=== PATIENT | female | born 1990 | race Caucasian/White ===

== ENCOUNTER 2017-06-19 18:13 | Emergency (ER) | payer OTHER, SELFPAY | END 2017-06-19 19:23 | disposition home or self-care (01) | LOC: SCSER 18:13 | DX: K14.1 Geographic tongue (principal); F41.9 Anxiety disorder, unspecified; F17.290 Nicotine dependence, other tobacco product, uncomplicated | CPT/HCPCS: 99283 ==

== ENCOUNTER 2017-09-01 21:12 | Emergency (ER) | payer SELFPAY ==
[2017-09-01 21:33] LABS: #Basophils 0.1 thou/uL (0.0-0.2); #Eosinphils 0.1 thou/uL (0.0-0.7); #Lymphocytes 3.5 thou/uL (1.20-3.40); #Monocytes 0.5 thou/uL (0.11-0.59); #Neutrophils 5.4 thou/uL (1.40-6.50); %Eosinophils 0.7 % (0.0-10.0); %Lymphocytes 36.4 % (21.0-51.0); %Monocytes 5.5 % (0.0-10.0); %Neutrophils 56.3 % (42.0-75.0); Hemoglobin 15.4 g/dL (12.0-16.0); Mean Corpuscular HGB CONC 34.1 g/dL (32.0-36.0); Mean Corpuscular Hemoglobin 30.6 pg (27.0-31.0); Mean Corpuscular Volume 89.7 fl (81.0-99.0); Mean Platelet Volume 7.2 fL (7.4-10.4); Platelet Count 377 thou/uL (130-400); RBC Distribution Width 11.3 % (11.5-14.5); Red Blood Cell (RBC) Count 5.05 mill/uL (4.20-5.40); White Blood Cell (WBC) Count 9.6 thou/uL (4.8-10.8)
--- NOTE | 2017-09-01 21:42 | RAD ---
PORTABLE CHEST: 09/01/17 HISTORY: Chest pain. Lung pedroza are clear. Heart and mediastinum are unremarkable. IMPRESSION: No acute abnormality. POS: [id number]
[2017-09-01 21:51] LABS: ALT (SGPT) 12 U/L (8-55); AST (SGOT) 13 U/L (5-34); Albumin 5.3 g/dL (3.5-5.0); Alkaline Phosphatase 54 U/L (40-150); Anion Gap 22 mmol/L (10-20); BUN (Urea Nitrogen) 14 mg/dL (7.0-18.7); Bilirubin, Total 0.8 mg/dL (0.2-1.2); CK (CPK) 129 U/L (29-168); Calc. Creatinine Clearance 0 mL/min (70-130); Calcium 11.3 mg/dL (7.8-10.44); Carbon Dioxide 20 mmol/L (22-29); Chloride 105 mmol/L (98-107); Estimated GFR-MDRD 69; Globulin 3.4 g/dL (2.4-3.5); Glucose 117 mg/dL (70-105); Lipase 22 U/L (8-78); Protein, Total 8.7 g/dL (6.0-8.3); Sodium 144 mmol/L (136-145)
[2017-09-01 21:52] LABS: Troponin I Less than 0.010 ng/mL (< 0.028)
[2017-09-01] MEDS ORDERED: Potassium Chloride 20 MEQ TAB ONE (22:07)
[2017-09-01] MEDS ORDERED: Ketorolac Tromethamine 30 MG/ML VIAL ONE (22:07)
[2017-09-01] MEDS ORDERED: Lorazepam 2 MG/ML VIAL ONE (22:14)
[2017-09-01] MEDS ORDERED: Nitroglycerin 2% Ointment 1 INCH/1 GM Packet ONE (22:27)
== END 2017-09-01 23:41 | disposition home or self-care (01) ==
LOC: ERS 21:12
DX: E87.6 Hypokalemia (principal); R07.9 Chest pain, unspecified; F41.9 Anxiety disorder, unspecified; F17.290 Nicotine dependence, other tobacco product, uncomplicated
CPT/HCPCS: 71045; 80053; 82553; 83690; 84484; 85025; 85379; 93005; 96361; 96374; 96375; J1885; J2060

== ENCOUNTER 2018-05-20 13:26 | Emergency (ER) | payer BC, SELFPAY | END 2018-05-20 14:02 | disposition home or self-care (01) | LOC: SCSER 13:26 | DX: M54.5 Low back pain (principal); F41.9 Anxiety disorder, unspecified; F17.210 Nicotine dependence, cigarettes, uncomplicated | CPT/HCPCS: 99283 ==